=== PATIENT | male | born 1995 | race Caucasian/White ===

== ENCOUNTER 2023-06-06 14:48 | Inpatient (IN) ==
[2023-06-06] MEDS: EPINEPHrine INJ 1 MG/ML AMP IM STA (14:58)
--- NOTE | 2023-06-06 14:58 | Emergency Department Note ---
Impression & Plan Anaphylaxis ED Provider Note HISTORY OF PRESENT ILLNESS: Patient is a 28-year-old male presenting with anaphylaxis. Patient was at his brother's house for lunch today and had "Gator balls" containing chicken, jalapenos, goználes and cheese. He also had 2 beers which she has not drank before. He started feeling very short of breath and having difficulty swallowing and called 911. On EMS arrival, patient's blood pressure was stable but he had diffuse hives, swollen tongue and swollen face. He was given IV Benadryl, Solu-Medrol, 0.3 mg of IM epi, and albuterol. In route to the hospital, he was given an additional 0.2 mg of IM epi. On arrival to the ER, the patient's hives have slightly improved but he is still complaining of difficulty swallowing. Patient denies ever having a reaction like this before. Patient is not on any medications at baseline. ROS: as above PHYSICAL EXAM: Constitutional: Patient appears in mild distress. HENT: Head: Normocephalic and atraumatic. Diffuse facial swelling, most notably in the bilateral periorbital region. Eyes: EOMI, PERRL Mouth/Throat: Mucous membranes moist. Uvula is midline but does appear swollen. Neck: Trachea midline. Neck supple. Cardiovascular: RRR, No murmurs, rubs or gallops. Intact distal pulses. Pulmonary/Chest: No respiratory distress. Breath sounds clear and equal bilaterally. Diffuse expiratory wheezes bilaterally. Abdominal: Abdomen soft, no tenderness, rebound or guarding. Musculoskeletal: No edema, tenderness or deformity noted. Skin: Warm and dry. Patient has diffuse hives on the trunk, bilateral upper and lower extremities. Psychiatric: Appropriate mood and affect for situation. Neurological: Alert and keenly responsive. CN II-XII grossly intact, moving all extremities equally and fully. MDM: - Vitals signs showed hypertension. - History obtained via patient and EMS, given patient's allergic reaction. Patient presents with anaphylaxis. Patient was at his brother's house for lunch today and had lunch and 2 new types of beer. He states that shortly after he was feeling short of breath and having difficulty swallowing and started having diffuse hives and swelling of his face. On EMS arrival, he was given Benadryl, Solu-Medrol, 2 doses of IM epi and albuterol. On arrival to the ER, he is still having significant swelling and difficulty swallowing. - Patient is still having significant swelling of his bilateral periorbital region, diffuse expiratory wheezes and states he is having difficulty swallowing. He was given an additional 0.3 mg of IM epinephrine in the ER and 20 mg of IV Pepcid. - Chronic conditions affecting care: None - Differential diagnoses include, but are not limited to: Angioedema; anaphylaxis; allergic reaction; carcinoid syndrome - Order placed for continuous cardiac monitoring. At this time, monitor showed rate of 74 bpm with normal sinus rhythm, per my interpretation. - External medical records reviewed. EMS run sheet was reviewed. Patient was given 0.3 mg of IM epi x 2, 125 mg IV Solu-Medrol and 50 mg of IV Benadryl prehospital. He was also given a DuoNeb treatment. - On reassessment at 1517, patient is still having periorbital swelling and diffuse wheezing and states that is very painful and difficult to swallow. Decision was made to start patient on epinephrine drip. - EKG interpreted by myself showed normal sinus rhythm. Rate 57 bpm. QTc 450. No acute ischemic changes. - Laboratory workup interpreted by myself showed normal WBC; stable electrolytes - CXR negative for pneumonia, per my interpretation - On reassessment, the patient does have improvement of his facial swelling and he is now able to talk and form complete sentences after being initiated on the epinephrine drip. - Discussed case with ICU physician, Dr. Giraldo, for admission to ICU given patient being on epinephrine drip. - Discussion was had with medical care evaluation specialist about patient's case and need for admission - Hospitalist consulted for admission - [facility]. I have personally spent 61 minutes of critical care time in the direct management of this patient. This includes bedside care, interpretation of diagnostic studies, and testing, discussion with consultants, patient, and family members, and other required patient management activities. This 61 minutes is in excess of all separately billable procedures. ASSESSMENT AND PLAN: Diagnosis: anaphylaxis Plan: admit Past Med/Surg History Social History Smoking Status: Never smoker Feels Safe at Home: Yes Allergies Allergies Allergy/AdvReac Type Severity Reaction Status Date / Time No Known Allergies Allergy Verified 06/06/23 15:07 Home Meds Home Medications Medication Instructions Recorded Confirmed No Known Home Medications 06/06/23 06/06/23 Results & Data (ED) Vital Signs Vital Signs - 24 hr 06/06/23 14:53 06/06/23 14:53 06/06/23 14:53 Pulse Rate 78 Pulse Rate [Apical] Pulse Rate from SpO2 Sensor Pulse Rhythm Respiratory Rate 24 Respiratory Effort / Characteristics Labored SOB on Exertion Respiratory Depth Shallow Blood Pressure 143/83 H Blood Pressure [Left Arm] Blood Pressure Mean 103 Blood Pressure Mean [Left Arm] Pulse Oximetry 100 Oxygen Delivery Method Nebulizer Nasal Cannula Oxygen Flow Rate 2 Sepsis Recent Fever Within 48 Hours No Sepsis New/Unexplained Change in Mental Status No Sepsis Action Taken by Nursing No Action Required 06/06/23 15:01 06/06/23 15:02 06/06/23 15:07 Pulse Rate 59 L 59 L Pulse Rate [Apical] 70 Pulse Rate from SpO2 Sensor 58 L Pulse Rhythm Regular Respiratory Rate 18 22 14 Respiratory Effort / Characteristics Respiratory Depth Normal Blood Pressure Blood Pressure [Left Arm] 148/81 H Blood Pressure Mean Blood Pressure Mean [Left Arm] 103 Pulse Oximetry 100 100 100 Oxygen Delivery Method Room Air Room Air Oxygen Flow Rate Sepsis Recent Fever Within 48 Hours Sepsis New/Unexplained Change in Mental Status Sepsis Action Taken by Nursing 06/06/23 15:15 06/06/23 15:30 06/06/23 15:30 Pulse Rate 67 63 Pulse Rate [Apical] Pulse Rate from SpO2 Sensor 66 67 Pulse Rhythm Respiratory Rate 18 20 Respiratory Effort / Characteristics Respiratory Depth Blood Pressure 143/80 H Blood Pressure [Left Arm] Blood Pressure Mean 102 Blood Pressure Mean [Left Arm] Pulse Oximetry 100 100 Oxygen Delivery Method Nasal Cannula Oxygen Flow Rate 2 Sepsis Recent Fever Within 48 Hours Sepsis New/Unexplained Change in Mental Status Sepsis Action Taken by Nursing 06/06/23 15:45 06/06/23 15:45 06/06/23 16:00 Pulse Rate 81 Pulse Rate [Apical] Pulse Rate from SpO2 Sensor 77 Pulse Rhythm Respiratory Rate 18 Respiratory Effort / Characteristics Respiratory Depth Blood Pressure 137/77 161/65 H Blood Pressure [Left Arm] Blood Pressure Mean 98 77 Blood Pressure Mean [Left Arm] Pulse Oximetry 100 Oxygen Delivery Method Oxygen Flow Rate Sepsis Recent Fever Within 48 Hours Sepsis New/Unexplained Change in Mental Status Sepsis Action Taken by Nursing 06/06/23 16:00 06/06/23 16:10 Pulse Rate 66 74 Pulse Rate [Apical] Pulse Rate from SpO2 Sensor 68 Pulse Rhythm Respiratory Rate 21 Respiratory Effort / Characteristics Respiratory Depth Blood Pressure Blood Pressure [Left Arm] Blood Pressure Mean Blood Pressure Mean [Left Arm] Pulse Oximetry 100 Oxygen Delivery Method Aerosol Mask Oxygen Flow Rate 2 Sepsis Recent Fever Within 48 Hours Sepsis New/Unexplained Change in Mental Status Sepsis Action Taken by Nursing Laboratory Data 06/06/23 14:55 06/06/23 14:55 Lab Results 06/06/23 Range/Units 14:55 WBC 10.36 (4.8-10.8) K/ul RBC 5.65 (4.70-6.10) M/uL Hgb 16.7 (14.0-18.0) g/dl Hct 49.9 (42.0-52.0) % MCV 88.3 (80.0-100.0) fL MCH 29.6 (25.0-34.0) pg MCHC 33.5 (32.0-36.0) g/dL RDW Std Deviation 37.9 (36.4-46.3) fL RDW Coeff of Jacquelin 11.8 (11.5-14.5) % Plt Count 466 H (130-400) K/uL MPV 9.2 L (9.4-12.4) fL Immature Gran % (Auto) 0.4 % Neut % (Auto) 42.5 % Lymph % (Auto) 45.7 % [place] % (Auto) 9.1 % Eos % (Auto) 1.8 % Baso % (Auto) 0.5 % Neut # (Auto) 4.41 (1.40-6.50) K/uL Lymph # (Auto) 4.73 H (1.20-3.40) K/uL [place] # (Auto) 0.94 H (0.11-0.59) K/uL Eos # (Auto) 0.19 (0.00-0.50) K/uL Baso # (Auto) 0.05 (0.00-0.20) K/uL Immature Gran # (Auto) 0.04 (0.01-0.20) K/uL Sodium 136 (136-145) mmol/L Potassium 3.5 (3.5-5.1) mmol/L Chloride 99 (98-107) mmol/L Carbon Dioxide 29 (21-32) mmol/L Anion Gap 8 (3-11) BUN 19 (6-23) mg/dl Creatinine 1.07 (0.6-1.4) mg/dl Est Cr Clr Drug Dosing 97.7 ml/min Est GFR ( Amer) 110.5 ml/min Est GFR (Non-Af Amer) 95.3 ml/min BUN/Creatinine Ratio 17.8 (10-20) Glucose 147 H (70-99(Fasting)) mg/dl Calcium 9.3 (8.6-10.3) mg/dl Magnesium 2.1 (1.7-2.4) mg/dl Total Bilirubin 1.9 H (0.2-1.0) mg/dl AST 29 (13-39) U/L ALT 22 (7-52) U/L Alkaline Phosphatase 65 (34-104) U/L Total Protein 7.2 (6.0-8.3) gm/dl Albumin 4.6 (3.4-5.0) gm/dl Globulin 2.6 (2.5-4.0) gm/dl Albumin/Globulin Ratio 1.8 (0.9-2) Administered Medications Epinephrine HCl () 4 mg in 254 mls @ 20.117 mls/hr IV .[id number] [facility]; Protocol Stop: 07/06/23 15:29 Last Admin: 06/06/23 15:37 Dose: 0.08 mcg/kg/min, 20.1 mls/hr Documented By: SHAUNA Co-signed By: MT Discontinued Medications Epinephrine HCl (Epinephrine Inj 1 Mg/Ml Amp) 0.3 mg IM NOW STA Stop: 06/06/23 14:56 Last Admin: 06/06/23 14:58 Dose: 0.3 mg Documented By: PIETRO Famotidine (Famotidine 20mg/5ml Iv Push) Confirm Administered Dose 20 mg IV .STK-MED ONE Stop: 06/06/23 14:51 Last Admin: 06/06/23 15:03 Dose: 20 mg Documented By: PIETRO Ondansetron HCl (Ondansetron Inj 2 Mg/Ml 2 Ml Vial) 4 mg IV NOW STA Stop: 06/06/23 15:22 Last Admin: 06/06/23 15:36 Dose: 4 mg Documented By: SHAUNA Imaging Data Radiologist's Impression: Chest X-Ray 06/06/23 15:18 XR chest 1V portable CLINICAL HISTORY: Anaphylaxis. COMPARISON STUDY: No previous studies for comparison. FINDINGS: Lung volumes are normal. Lungs are clear. There is no pneumothorax or pleural effusion. Cardiac size is normal. Mediastinal contours are normal. There is no evidence for pulmonary edema. IMPRESSION: No acute cardiopulmonary findings. ACT 112: Negative or not required by law. Electronically signed by: Isaiah Herrmann M.D. 06/06/2023 3:51 PM Discharge Plan Visit Data Chief Complaint: Allergic Reaction Stated Complaint: ALLERGIC REACTION ED Provider: Sharon Larose Discharge Problem: Anaphylaxis Forms [facility] [place] [facility] Prescriptions Prescriptions: No Action No Known Home Medications Referrals Referrals: PCP,NO [Primary Care Provider] -
[2023-06-06] MEDS: FAMOTIDINE 20MG/5ML IV PUSH IV ONE (15:03)
[2023-06-06] MEDS ORDERED: STAT IV Infusion **Titration per Protocol STA (15:18)
[2023-06-06 15:21] LABS: Basophils # (auto) 0.05 K/uL (0.00-0.20); Basophils % (auto) 0.5 %; Eosinophils # (auto) 0.19 K/uL (0.00-0.50); Eosinophils % (auto) 1.8 %; Hematocrit (blood only) 49.9 % (42.0-52.0); Hemoglobin 16.7 g/dl (14.0-18.0); Immature Granulocytes # (auto) 0.04 K/uL (0.01-0.20); Immature Granulocytes % (auto) 0.4 %; Lymphocytes # (auto) 4.73 K/uL (1.20-3.40); Lymphocytes % (auto) 45.7 %; Mean Corpuscular Hemoglobin 29.6 pg (25.0-34.0); Mean Corpuscular Hgb Conc 33.5 g/dL (32.0-36.0); Mean Corpuscular Volume 88.3 fL (80.0-100.0); Mean Platelet Volume 9.2 fL (9.4-12.4); Monocytes # (auto) 0.94 K/uL (0.11-0.59); Monocytes % (auto) 9.1 %; Neutrophils # (auto) 4.41 K/uL (1.40-6.50); Neutrophils % (auto) 42.5 %; Platelet Count 466 K/uL (130-400); RDW Coefficient of Variation 11.8 % (11.5-14.5); RDW Standard Deviation 37.9 fL (36.4-46.3); Red Blood Count 5.65 M/uL (4.70-6.10); White Blood Count 10.36 K/ul (4.8-10.8)
[2023-06-06] MEDS: ONDANSETRON INJ 2 MG/ML 2 ML VIAL IV STA (15:36)
[2023-06-06] MEDS: EPINEPHrine/NSS 4 MG/254 ML BAG IV SCH (15:37)
[2023-06-06 15:40] LABS: Albumin Globulin Ratio 1.8 (0.9-2); Albumin Level 4.6 gm/dl (3.4-5.0); BUN Creatinine Ratio 17.8 (10-20); Bilirubin,Total 1.9 mg/dl (0.2-1.0); Calcium 9.3 mg/dl (8.6-10.3); Creatinine Clr Calc Pharmacy 97.7 ml/min; Est GFR (African American) 110.5 ml/min; Est GFR (Non-African American) 95.3 ml/min; Globulin 2.6 gm/dl (2.5-4.0); Magnesium 2.1 mg/dl (1.7-2.4); Potassium 3.5 mmol/L (3.5-5.1); Total Protein 7.2 gm/dl (6.0-8.3)
--- NOTE | 2023-06-06 15:52 | XRay Report ---
XR chest 1V portable CLINICAL HISTORY: Anaphylaxis. COMPARISON STUDY: No previous studies for comparison. FINDINGS: Lung volumes are normal. Lungs are clear. There is no pneumothorax or pleural effusion. Car diac size is normal. Mediastinal contours are normal. There is no evidence for pulmonary edema. IMPRESSION: No acute cardiopulmonary findings. ACT 112: Negative or not required by law. Electronically signed by: Isaiah Herrmann M.D. 06/06/2023 3:51 PM
--- NOTE | 2023-06-06 16:39 | History & Physical Report ---
Date of Service June 06, 2023 Assessment & Plan (1) Anaphylaxis: Plan: This is a 28 y/o male with no significant medical history who presented to the ED today via EMS with anaphylaxis. He received multiple doses of epinephrine IM, as well as Solu-Medrol, Benadryl, and albuterol neb without significant improvement so epinephrine drip was initiated in the ED. Pt has had slow improvement on the epinephrine drip but still has significant facial swelling and some trouble with speech/swallowing. He has been referred for admission to the ICU to continue the epinephrine drip and management of the anaphylaxis. - Admit to the ICU - Critical care consult - spoke with Dr. Giraldo who evaluated the patient in the ED - Wean epinephrine drip per critical care - Solu-Medrol 40 mg IV BID, famotidine 20 mg IV BID, and Benadryl 25 mg IV Q8 hrs for now - Labs in the AM - Will need outpatient follow-up with physical sciences professor to identify specific trigger although seems most likely something patient ingested at lunch - Wean oxygen to maintain sats >92% Plan Pt seen and reviewed with collaborating physician, Dr. Elliott. Plan of care discussed and as outlined above Code Status: Full code DVT Prophylaxis: Jamar Sr PA-C History of Present Illness Chief Complaint: Anaphylaxis Primary Care Provider: NO PCP This is a 28 y/o male with no significant medical history who presented to the ED today via EMS with anaphylaxis. History was obtained from both patient and his parents at the bedside. The family went out to eat at [employer] in [place] today for lunch. Pt had "gator balls" and two beers, which he had not had previously. He then went to a hockey game at the arena when he started to have some throat discomfort then developed diffuse hives and facial edema, followed by trouble swallowing and shortness of breath. When EMS arrived, BP was stable but pt had facial and tongue swelling, diffuse hives, with dyspnea so anaphylaxis protocol initiated. Pre-hospital, he was given Epi 0.3 mg x 2 doses, Solu-Medrol, IV Benadryl, and albuterol with minimal improvement. In the ED, he was given another 0.3 mg Epi, famotidine 20 mg IV without significant improvement so epinephrine drip was initiated. Since being on the epinephrine drip, his symptoms have slowly started to improve. He denies significant dyspnea at present but still has some persistent dysphagia and facial swelling although this is improved from prior. The diffuse hives have also significantly improved. He denies prior anaphylaxis and has no known food or medication allergies. He has a remote history of seasonal allergies when he was younger but this has been improved for the last several years. No history of asthma or eczema. Allergies Allergy/AdvReac Type Severity Reaction Status Date / Time No Known Allergies Allergy Verified 06/06/23 15:07 Home Medications Medication Instructions Recorded Confirmed Type No Known Home Medications 06/06/23 06/06/23 History Past Med/Surg History Medical History (Updated 06/06/23 @ 17:49 by Tab Giraldo MD, [facility]) No pertinent past medical history Surgical History (Updated 06/06/23 @ 16:35 by Esme Sr PA-C) S/P shoulder surgery left Family History (Updated 06/06/23 @ 16:36 by Esme Sr PA-C) Other No pertinent family history Social History (Updated 06/06/23 @ 16:36 by Esme Sr PA-C) Smoking Status: Never smoker Second Hand Exposure: No; Do You Dip or Chew Tobacco: No; Hx Alcohol Use: Yes Alcohol type: beer Alcohol Intake Frequency Comment: weekly Preferred Language: Romansh Communication Ability: Effective 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 Beliefs That Will Affect Care: None Current Living Situation: Family Feels Safe at Home: Yes Assistive Devices: None Review of Systems Review of Systems: All systems reviewed & are unremarkable except as noted in HPI & below Physical Exam Physical Exam: General: awake, answers questions appropriately Eyes: +bilateral periorbital edema Mouth: +mildly swollen uvula and tongue, speech still slightly garbled Neck: trachea midline Heart: RRR, no M/G/R Lungs: diminished BS with occasional faint wheeze Abdomen: soft, NT, +BS Extremities: distal pulses intact and equal Skin: a few scattered faint hives on trunk Neurologic: oriented x 3, moving all extremities Results & Data Results & Data Vital Signs (Past 12 Hours) Vital Signs Pulse Pulse Resp BP BP Pulse Ox O2 Del Method 06/06/23 16:10 74 06/06/23 16:00 66 21 100 Aerosol Mask 06/06/23 16:00 161/65 H 06/06/23 15:45 81 18 100 06/06/23 15:45 137/77 06/06/23 15:30 63 20 100 Nasal Cannula 06/06/23 15:30 143/80 H 06/06/23 15:15 67 18 100 06/06/23 15:07 59 L 14 100 06/06/23 15:02 70 22 148/81 H 100 Room Air 06/06/23 15:01 59 L 18 100 Room Air 06/06/23 14:53 Nasal Cannula 06/06/23 14:53 78 24 143/83 H 100 Nebulizer O2 Flow Rate 06/06/23 16:10 06/06/23 16:00 2 06/06/23 16:00 06/06/23 15:45 06/06/23 15:45 06/06/23 15:30 2 06/06/23 15:30 06/06/23 15:15 06/06/23 15:07 06/06/23 15:02 06/06/23 15:01 06/06/23 14:53 2 06/06/23 14:53 Laboratory Results Laboratory Results - last 24 hr 06/06/23 06/06/23 14:48 14:55 WBC 10.36 RBC 5.65 Hgb 16.7 Hct 49.9 MCV 88.3 MCH 29.6 MCHC 33.5 RDW Std Deviation 37.9 RDW Coeff of Jacquelin 11.8 Plt Count 466 H MPV 9.2 L Immature Gran % (Auto) 0.4 Neut % (Auto) 42.5 Lymph % (Auto) 45.7 [place] % (Auto) 9.1 Eos % (Auto) 1.8 Baso % (Auto) 0.5 Neut # (Auto) 4.41 Lymph # (Auto) 4.73 H [place] # (Auto) 0.94 H Eos # (Auto) 0.19 Baso # (Auto) 0.05 Immature Gran # (Auto) 0.04 Sodium 136 Potassium 3.5 Chloride 99 Carbon Dioxide 29 Anion Gap 8 BUN 19 Creatinine 1.07 Est Cr Clr Drug Dosing 97.7 Est GFR ( Amer) 110.5 Est GFR (Non-Af Amer) 95.3 BUN/Creatinine Ratio 17.8 Glucose 147 H Calcium 9.3 Magnesium 2.1 Total Bilirubin 1.9 H AST 29 ALT 22 Alkaline Phosphatase 65 Total Protein 7.2 Albumin 4.6 Globulin 2.6 Albumin/Globulin Ratio 1.8 Tryptase Pending Diagnostic Findings Chest X-Ray 06/06/23 15:18 XR chest 1V portable CLINICAL HISTORY: Anaphylaxis. COMPARISON STUDY: No previous studies for comparison. FINDINGS: Lung volumes are normal. Lungs are clear. There is no pneumothorax or pleural effusion. Cardiac size is normal. Mediastinal contours are normal. There is no evidence for pulmonary edema. IMPRESSION: No acute cardiopulmonary findings. ACT 112: Negative or not required by law. Electronically signed by: Isaiah Herrmann M.D. 06/06/2023 3:51 PM Medications Administered Epinephrine HCl () 4 mg in 254 mls @ 20.117 mls/hr IV .[id number] [facility]; Protocol Stop: 07/06/23 15:29 Last Admin: 06/06/23 15:37 Dose: 0.08 mcg/kg/min, 20.1 mls/hr Documented By: SHAUNA Co-signed By: MT Discontinued Medications Epinephrine HCl (Epinephrine Inj 1 Mg/Ml Amp) 0.3 mg IM NOW STA Stop: 06/06/23 14:56 Last Admin: 06/06/23 14:58 Dose: 0.3 mg Documented By: PIETRO Famotidine (Famotidine 20mg/5ml Iv Push) Confirm Administered Dose 20 mg IV .[facility]-MED ONE Stop: 06/06/23 14:51 Last Admin: 06/06/23 15:03 Dose: 20 mg Documented By: PIETRO Ondansetron HCl (Ondansetron Inj 2 Mg/Ml 2 Ml Vial) 4 mg IV NOW STA Stop: 06/06/23 15:22 Last Admin: 06/06/23 15:36 Dose: 4 mg Documented By: SHAUNA Supervising Physician Co-Signing Physician Notes I have seen and examined the patient and have discussed the case with the provider above. I have reviewed the advanced practitioner's documentation, and I agree with, and take responsibility for that plan of care. 28-year-old man with no history of allergy to food and no history of anaphylaxis presents with anaphylaxis after ingesting food and some beer at a local restaurant. EMS arrived at the restaurant where he was found to have facial and tongue swelling with diffuse hives and dyspnea with wheezing. History as noted above. He is now on an epinephrine drip in the ICU with symptoms that are improving including resolution of hives and wheezing. He still has significant swelling to his face but is now off oxygen. Parents are at bedside. Patient is from [place] with primary care doctor in the [facility]. We discussed the importance of an epinephrine pen upon discharge and follow-up with an physical sciences professor. On exam patient's vitals are stable with BP 135/62, pulse 79, respirations 20, temp 36.8, sat 97% on room air. He is not working to breathe. Lungs are clear to auscultation throughout. He is a well-nourished well-developed young man. He does have facial swelling and periorbital swelling specifically. There is no evidence of rash and skin is warm and dry. Physical exam as otherwise noted above. Workup today reveals a CBC with a mildly reactive thrombocytosis (platelet 466). CHEM panel is within normal limits and a tryptase level is pending. Chest x- ray revealed no acute cardiopulmonary findings. EKG revealed sinus bradycardia with sinus arrhythmia and a right bundle branch block. There were no previous EKGs to compare this to. Agree with plan for continued treatment of idiopathic anaphylaxis including monitoring in the ICU on epinephrine drip weaning off as soon as able., Continuing Solu-Medrol, famotidine and Benadryl. DO Earl (1) Anaphylaxis Encounter type: initial encounter Qualified Code(s): T78.2XXA - Anaphylactic shock, unspecified, initial encounter
--- NOTE | 2023-06-06 17:49 | Critical Care Consultation ---
Date of Consultation June 06, 2023 Assessment & Plan (1) Anaphylaxis: (2) Right bundle branch block: (3) Sinus bradycardia: Plan 28-year-old male present to the ED with throat swelling, generalized rash and difficulty swallowing. Started on epi drip. Sent in the ICU for further management EKG 06/06/2023 1529: Sinus bradycardia, normal axis, right bundle branch block, no ST-T wave changes. QTc 438 -- Anaphylactic reaction S/p multiple rounds of IM epi Currently on epi drip --Increase pulmonary vascular marking on the x-ray Likely from anaphylaxis Patient saturating well on room air -- Right bundle ministerio block Incidental finding Repeat EKG in the morning --Prophylaxis VTE: None GI: Pepcid Lines: Peripheral Diet: N.p.o. Plan: Continue with heparin drip. Will try to gradually titrated off in the next couple of hours and see the response. Continue with Solu-Medrol 40 mg twice daily, Benadryl 25 mg Q8, Pepcid 20 mg every 12 Will observe the patient in the ICU for any possibility of airway compromise. Follow-up tryptase, follow-up complement levels All questions inquiries of the patient as well as patient's parents were answered in depth Please note the above document was generated using voice recognition software. It may contain grammatical, syntax or spelling errors.Any formal questions or concerns about the content, text or information contained within the body of this dictation should be directly addressed to the provider for clarification. History of Present Illness Attending Physician: Oly Elliott DO History of Present Illness 28-year-old male present to the hospital with complaints of generalized rash difficulty swallowing and talking Past medical history: Noncontributory In the ED patient was given multiple IM epi, he got epi even by the EMS. He needed to be started on epi drip and that is the reason he was sent to the ICU. Patient apparently had 2 beers and a fast food item called ''gator balls'' following which he started to have hives, difficulty swallowing and tongue swelling. He was given epi by the EMS. At the time of examination patient was already on epi drip, heart rate was in the mid 60s, systolic blood pressure was in the 160s. Patient's parents were in the room. He was able to talk in full sentences. He did have hoarseness of voice. Denies any abdominal pain. No dizziness right now. No difficulty breathing. No chest pain No nausea or vomiting Patient denies having any episodes like this in the past No history of asthma or eczema as a child Allergies Allergy/AdvReac Type Severity Reaction Status Date / Time No Known Allergies Allergy Verified 06/06/23 15:07 Home Medications Medication Instructions Recorded Confirmed Type No Known Home Medications 06/06/23 06/06/23 History Patient History Medical History (Updated 06/06/23 @ 17:49 by Tab Giraldo MD, [facility]) No pertinent past medical history Surgical History (Updated 06/06/23 @ 16:35 by Esme Sr PA-C) S/P shoulder surgery left Family History (Updated 06/06/23 @ 16:36 by Esme Sr PA-C) Other No pertinent family history Social History (Updated 06/06/23 @ 16:36 by Esme Sr PA-C) Smoking Status: Never smoker Hx Alcohol Use: Yes Alcohol type: beer Alcohol Intake Frequency Comment: weekly Feels Safe at Home: Yes Review of Systems 2 Review of Systems: All systems reviewed & are unremarkable except as noted in HPI & below Physical Exam 2 Physical Exam: Constitutional: No acute distress HEENT: EOMI, PERRLA, edema of the bilateral eyelids, hoarse voice, no stridor, easily able to move the tongue. No significant swelling of the tongue Respiratory system: Good air entry bilaterally, no wheeze, no rhonchi, no cough CVS: S1-S2 positive, no murmurs or gallops Abdomen: Soft, nontender, nondistended, positive bowel sounds x4 Extremities: +2 pulses bilaterally radialis/ dorsalis pedis, no cyanosis, no edema Neuro: Awake alert oriented x3 Psych: Normal mood and affect G/U: No Chris Skin: No significant rash appreciated on my physical exam Results & Data Results & Data Vital Signs (Past 12 Hours) Vital Signs Pulse Pulse Resp BP BP Pulse Ox O2 Del Method 06/06/23 17:00 130/73 06/06/23 17:00 59 L 16 97 Room Air 06/06/23 16:45 89 15 98 Room Air 06/06/23 16:45 135/71 06/06/23 16:30 55 L 17 97 Room Air 06/06/23 16:30 126/77 06/06/23 16:15 80 15 98 Room Air 06/06/23 16:15 118/74 06/06/23 16:10 74 06/06/23 16:00 66 21 100 Aerosol Mask 06/06/23 16:00 161/65 H 06/06/23 15:45 81 18 100 06/06/23 15:45 137/77 06/06/23 15:30 63 20 100 Nasal Cannula 06/06/23 15:30 143/80 H 06/06/23 15:15 67 18 100 06/06/23 15:07 59 L 14 100 06/06/23 15:02 70 22 148/81 H 100 Room Air 06/06/23 15:01 59 L 18 100 Room Air 06/06/23 14:53 Nasal Cannula 06/06/23 14:53 78 24 143/83 H 100 Nebulizer O2 Flow Rate 06/06/23 17:00 06/06/23 17:00 06/06/23 16:45 06/06/23 16:45 06/06/23 16:30 06/06/23 16:30 06/06/23 16:15 06/06/23 16:15 06/06/23 16:10 06/06/23 16:00 2 06/06/23 16:00 06/06/23 15:45 06/06/23 15:45 06/06/23 15:30 2 06/06/23 15:30 06/06/23 15:15 06/06/23 15:07 06/06/23 15:02 06/06/23 15:01 06/06/23 14:53 2 06/06/23 14:53 Laboratory Results 06/06/23 14:55 06/06/23 14:55 Coding Level of Care Code 01699 IN/OBS CONSULT LVL 4,60M Diagnoses Anaphylaxis, initial encounter T78.2XXA Encounter type: initial encounter Right bundle branch block I45.10 Sinus bradycardia R00.1 (1) Anaphylaxis Encounter type: initial encounter Qualified Code(s): T78.2XXA - Anaphylactic shock, unspecified, initial encounter
[2023-06-06] MEDS: POTASSIUM CHLORIDE 20 MEQ/15 ML UDC PO STA (19:59)
[2023-06-06] MEDS: ICU Protocol for HYPERglycemia SCH (20:00)
[2023-06-06] MEDS: diphenhydrAMINE 50 MG/ML VIAL IV SCH (20:06)
[2023-06-06] MEDS: POTASSIUM CHLORIDE / WTR 10 MEQ/100 ML PLCT IV SCH (20:55)
[2023-06-06 21:10] LABS: Phosphorus 4.2 mg/dl (2.5-4.9)
[2023-06-06] MEDS: methylPREDNISolone 40 MG in SYRINGE 0 ML IV SCH (23:47)
[2023-06-07] MEDS: FAMOTIDINE 20 MG in SYRINGE 3 ML IV SCH (02:45)
[2023-06-07] MEDS ORDERED: FAMOTIDINE 200 MG/20 ML VIAL IV SCH (03:00)
[2023-06-07 05:07] LABS: Albumin Level 4.3 gm/dl (3.4-5.0); Bilirubin Direct 0.1 mg/dl (0-0.2); Bilirubin,Total 1.3 mg/dl (0.2-1.0); Creatinine Clr Calc Pharmacy 116.5 ml/min; Est GFR (African American) 136.1 ml/min; Est GFR (Non-African American) 117.5 ml/min; Potassium 4.5 mmol/L (3.5-5.1); Total Protein 6.4 gm/dl (6.0-8.3)
[2023-06-07 05:18] LABS: Hematocrit (blood only) 40.9 % (42.0-52.0); Hemoglobin 13.4 g/dl (14.0-18.0); Mean Corpuscular Hemoglobin 28.8 pg (25.0-34.0); Mean Corpuscular Hgb Conc 32.8 g/dL (32.0-36.0); Mean Corpuscular Volume 87.8 fL (80.0-100.0); Mean Platelet Volume 9.1 fL (9.4-12.4); Platelet Count 361 K/uL (130-400); RDW Standard Deviation 38.6 fL (36.4-46.3); Red Blood Count 4.66 M/uL (4.70-6.10); White Blood Count 12.17 K/ul (4.8-10.8)
[2023-06-07 05:19] LABS: Basophils # (auto) 0.01 K/uL (0.00-0.20); Basophils % (auto) 0.1 %; Immature Granulocytes # (auto) 0.06 K/uL (0.01-0.20); Immature Granulocytes % (auto) 0.5 %; Lymphocytes # (auto) 0.53 K/uL (1.20-3.40); Lymphocytes % (auto) 4.4 %; Monocytes % (auto) 1.6 %; Neutrophils # (auto) 11.37 K/uL (1.40-6.50); Neutrophils % (auto) 93.4 %
--- NOTE | 2023-06-07 07:45 | Critical Care Progress Note ---
Date of Service June 07, 2023 Assessment & Plan (1) Anaphylaxis: (2) Right bundle branch block: (3) Sinus bradycardia: Plan 28-year-old male present to the ED with throat swelling, generalized rash and difficulty swallowing. Started on epi drip. Sent in the ICU for further management EKG 06/06/2023 1529: Sinus bradycardia, normal axis, right bundle branch block, no ST-T wave changes. QTc 438 -- Anaphylactic reaction S/p multiple rounds of IM epi --Increase pulmonary vascular marking on the x-ray Likely from anaphylaxis Patient saturating well on room air -- Right bundle ministerio block Incidental finding Repeat EKG in the morning --Prophylaxis VTE: None GI: Pepcid Lines: Peripheral Diet: Regular diet Plan: In/out: +71, urine output 650 Discontinue diphenhydramine Would recommend to continue with Pepcid for the next 3-5 days Taper the prednisone off over the next 3-5 days Patient will need to carry EpiPen wherever he goes Would recommend outpatient follow-up with any immunology to find out what exactly he is allergic to so that he can avoid it Patient's family which was in the room as well as patient's question were answered in depth. Okay to be downgraded from ICU. Case discussed with primary team Please note the above document was generated using voice recognition software. It may contain grammatical, syntax or spelling errors.Any formal questions or concerns about the content, text or information contained within the body of this dictation should be directly addressed to the provider for clarification. Admission and Anticipated Discharge Date Admission Date: June 06, 2023 Subjective Patient seen and examined at bedside. No acute distress, no adverse events overnight He has been off of epinephrine drip for anaphylaxis as of around 2 AM in the morning He feels much better Denies any difficulty swallowing, finished his breakfast without any issues No shortness of breath No abdominal pain No dizziness, no headache Review of Systems 2 Review of Systems: All systems reviewed & are unremarkable except as noted in Subjective Physical Exam 2 Physical Exam: Constitutional: No acute distress HEENT: EOMI, PERRLA, periorbital and eyelid swelling resolved, no tongue swelling Respiratory system: Good air entry bilaterally, no wheeze, no rhonchi, no cough CVS: S1-S2 positive, no murmurs or gallops Abdomen: Soft, nontender, nondistended, positive bowel sounds x4 Extremities: +2 pulses bilaterally radialis/ dorsalis pedis, no cyanosis, no edema Neuro: Awake alert oriented x3 Psych: Normal mood and affect G/U: No Chris Skin: No significant rash appreciated on my physical exam Results & Data Results & Data Vital Signs (Past 12 Hours) Vital Signs Temp Pulse Resp BP Pulse Ox O2 Del Method 06/07/23 06:31 36.6 C 48 L 16 112/58 L 95 06/07/23 05:00 79 20 95/44 L 97 06/07/23 04:31 36.5 C 68 24 99/43 L 97 06/07/23 03:31 60 19 129/56 L 96 Room Air 06/07/23 02:31 36.8 C 74 16 114/53 L 96 Room Air 06/07/23 01:32 36.6 C 101 H 19 117/74 96 Room Air 06/07/23 01:31 88 06/07/23 00:31 66 19 103/46 L 96 Room Air 06/07/23 00:00 88 06/06/23 23:31 36.5 C 80 18 125/46 L 97 Room Air 06/06/23 23:00 78 20 98 Room Air 06/06/23 22:00 36.6 C 62 17 133/60 97 Room Air 06/06/23 21:05 36.6 C 78 19 121/62 97 Room Air 06/06/23 20:00 36.8 C 79 20 135/62 97 Laboratory Results 06/07/23 04:20 06/07/23 04:20 Coding Level of Care Code 46259 SUB INP/OBS CARE 235MIN Diagnoses Anaphylaxis, initial encounter T78.2XXA Encounter type: initial encounter Right bundle branch block I45.10 Sinus bradycardia R00.1 (1) Anaphylaxis Encounter type: initial encounter Qualified Code(s): T78.2XXA - Anaphylactic shock, unspecified, initial encounter
[2023-06-07] MEDS: methylPREDNISolone 40 MG in SYRINGE 0 ML IV SCH (08:55)
[2023-06-07] MEDS ORDERED: EPINEPHrine ADULT AUTO-INJECT 0.3 MG SYR IM PRN (10:10)
[2023-06-07] MEDS ORDERED: EPINEPHrine ADULT AUTO-INJECT 0.3 MG SYR IM SCH ×2 (10:11)
--- NOTE | 2023-06-07 14:43 | Discharge Summary ---
Date of Service June 07, 2023 Admission HPI Per Admitting Provider This is a 28 y/o male with no significant medical history who presented to the ED today via EMS with anaphylaxis. History was obtained from both patient and his parents at the bedside. The family went out to eat at [employer] in [place] today for lunch. Pt had "gator balls" and two beers, which he had not had previously. He then went to a hockey game at the arena when he started to have some throat discomfort then developed diffuse hives and facial edema, followed by trouble swallowing and shortness of breath. When EMS arrived, BP was stable but pt had facial and tongue swelling, diffuse hives, with dyspnea so anaphylaxis protocol initiated. Pre-hospital, he was given Epi 0.3 mg x 2 doses, Solu-Medrol, IV Benadryl, and albuterol with minimal improvement. In the ED, he was given another 0.3 mg Epi, famotidine 20 mg IV without significant improvement so epinephrine drip was initiated. Since being on the epinephrine drip, his symptoms have slowly started to improve. He denies significant dyspnea at present but still has some persistent dysphagia and facial swelling although this is improved from prior. The diffuse hives have also significantly improved. He denies prior anaphylaxis and has no known food or medication allergies. He has a remote history of seasonal allergies when he was younger but this has been improved for the last several years. No history of asthma or eczema. Admission Exam Per Admitting Provider General: awake, answers questions appropriately Eyes: +bilateral periorbital edema Mouth: +mildly swollen uvula and tongue, speech still slightly garbled Neck: trachea midline Heart: RRR, no M/G/R Lungs: diminished BS with occasional faint wheeze Abdomen: soft, NT, +BS Extremities: distal pulses intact and equal Skin: a few scattered faint hives on trunk Neurologic: oriented x 3, moving all extremities Principal Diagnosis Anaphylactic reaction Discharge Exam Constitutional: WD/WN, vitals as above, NAD, sitting up in bed, pleasant, conversing easily Respiratory: normal respiratory effort, lungs clear to auscultation, no wheeze, rales, rhonchi. Normal insp/exp effort, no accessory muscle use Cardiovascular: RRR, no murmur, no edema Vessels: no JVD or carotid bruit Chest: normal inspection of chest Abdomen: normal bowel sounds, soft, nontender, no hepatosplenomegaly Musculoskeletal: no cyanosis or clubbing, extremities motor strength 5/5 Skin: no rashes, warm and dry normal turgor Neurologic: PERRL, EOMI, accommodation nl, no face palsy, no dysarthria CN's II- XI intact bilaterally and moves all extremities Psychiatric: A+Ox3, euthymic affect Discharge Data Allergies Allergy/AdvReac Type Severity Reaction Status Date / Time No Known Allergies Allergy Verified 06/06/23 15:07 Consultations 06/06/23 16:17 ED Decision to Admit Stat 06/06/23 18:12 Consult Demurrage Man Routine Hospital Course (1) Anaphylaxis: Patient is a 28 y/o male with no significant medical history who presented to the ED via EMS with anaphylaxis. He received multiple doses of epinephrine IM, as well as Solu-Medrol, Benadryl, and albuterol neb without significant improvement so epinephrine drip was initiated in the ED. Patient was admitted to ICU for closer monitoring. Over the course of the hospitalization, patient had significant improvement in the facial/throat swelling; his vitals remained stable along with his oxygenation. Patient was able to tolerate p.o. diet in AM Coordination with the pharmacy was done patient to get epinephrine pen Discussed regarding use of the epinephrine pen if the symptoms recur or if he has another anaphylactic reaction. Also recommended to follow-up with allergy/immunology; information regarding follow-up provided. Patient was also provided tapering dose of steroids, Pepcid and Benadryl. Please note the above document was generated using voice recognition software. It may contain grammatical, syntax or spelling errors. Any formal questions or concerns about the content, text or information contained within the body of this dictation should be directly addressed to the provider for clarification Total Time Total Time Spent Total Time Spent (In Minutes): 45 Total Time Includes: Examination of the Patient, Discharge Planning, Medication Reconciliation, Communication With Other Providers and Other Discharge Plan Discharge Items Patient Disposition: Home - Self-Care Reason For Visit: ANAPHYLAXIS Discharge Diagnosis: Anaphylaxis Activity: Resume your previous activity Non-emergency contact: Primary Care Provider Call non-emergency contact if: you have any medication questions and your symptoms worsen Follow-up/Referrals: PCP,NO [Primary Care Provider] - Diet: Regular Addtl Attending Provider Instructions: You have been diagnosed with a seriousallergic reaction. It's known as anaphylactic shock or anaphylaxis. This reaction often happens within minutes of exposure to an allergen. But it can be delayed for hours. Symptoms of anaphylactic shock can include: Coughing, wheezing, or shortness of breath Throat itching, tightness, or trouble swallowing Vomiting or diarrhea Red, itchy rash (hives), or swelling Dizziness, confusion, or passing out because of a sudden drop in blood pressure Less oxygen reaches your brain and other organs, and your body goes into shock Anaphylactic shock can cause if not treated quickly. In rare cases, anaphylactic shock can return within 24 to 48 hours. There is no way to predict if this will happen. [id number] away if your anaphylaxis symptoms return. You will be provided epinephrine auto injector. It will help to stop an allergic reaction until you can get medical help. You sometimes need a second dose in 5 to 15 minutes if your symptoms are not getting better or starting to come back. You will need to see event specialist product demonstrator for follow-up. The event specialist product demonstrator locally here is Dr.Faoud Becerril and Dr. Garett Rebollar. To make an appointment, please call [phone]. You were prescribed other medications as below: 1) Prednisone 10 mg tablets. Take 40 mg for 2 days, 20 mg for 2 days then 10 mg for 2 days 2) Famotidine 20 mg twice a day for 7 days 3) Benadryl 25 mg as needed every 8 hours for hives/allergic reaction. Pending Studies at Discharge: Yes Studies:: Complement level and tryptase Stand-Alone Forms: My [facility], Smoking Cessation Medications and DC Order Prescriptions: New prednisone 10 mg tablet See Taper PO DAILY Qty: 14 0RF Taper: Taper, Blank 40 mg DAILY for 2 Days 20 mg DAILY for 2 Days 10 mg DAILY for 2 Days famotidine [Pepcid] 20 mg tablet 20 mg PO BID 7 Days Qty: 14 0RF diphenhydramine HCl [Benadryl] 25 mg capsule 25 mg PO Q8H PRN (Reason: allergic reaction) Qty: 20 0RF Discharge Orders: Discharge Order (Routine); Ordered 06/07/23 Ordered By: Charli Black Admission Data Admit Date/Time: 06/06/23 16:08 Attending Provider: Charli Black Admit Provider: Oly Elliott Primary Care Provider: PCP,NO Other Providers: Oly Elliott; Tab Giraldo Other Interventions: Discharge Summary Assessment (RN) Last Done: 06/07/23 10:58
--- NOTE | 2023-06-07 16:00 | Electrocardiogram Report ---
Test Reason : Blood Pressure : / mmHG Vent. Rate : 057 BPM Atrial Rate : 057 BPM P-R Int : 166 ms QRS Dur : 122 ms QT Int : 450 ms P-R-T Axes : 054 086 053 degrees QTc Int : 438 ms Sinus bradycardia with sinus arrhythmia Right bundle branch block Abnormal ECG No previous ECGs available Confirmed by Michael Hernandez ([id number]) on 06/07/2023 3:59:48 PM Referred By: REFERRED SELF Confirmed By:Michael Hernandez
== END 2023-06-07 12:37 | disposition home or self-care (01) | DRG 916 ==
LOC: ED 14:48 → SUATTDRO 16:08 → 1E 16:08